=== PATIENT | female | born 1935 | race Caucasian/White ===

== ENCOUNTER → 2017-03-02 | Outpatient (CLI) | payer OTHER ==
--- NOTE | 2017-03-03 07:10 | HKNOTE ---
DATE OF SERVICE: 03/02/2017 MAIN COMPLAINT: Left knee pain. HISTORY OF PRESENT ILLNESS: This is a 81-year-old female complaining of severe left knee pain that has been worsening over the last year. Pain is constant. It is on the inside of the left knee. There are no alleviating factors. She rates it as 9/10. She denies any groin or back pain. The pain is sharp. She denies any history of trauma. She denies any locking, catching or instability. She does not use any assistive devices. She takes ibuprofen without any pain relief. She has no other complaints. PHYSICAL EXAMINATION: Gait: Antalgic gait. No use of assistive devices. Left knee: Neutral alignment. Tender over the medial joint line, nontender over the lateral joint line, 0-110 degrees range of motion. Stable to varus, valgus stress. Negative Aiyana. Negative anterior drawer. Negative posterior drawer. Palpable pulses. IMAGING: X-rays left knee: Three views of the left knee demonstrate medial joint space narrowing with marginal osteophytes. There is bone on bone degenerative changes. IMPRESSION: A 81-year-old female with left knee osteoarthritis who has failed nonoperative management. PLAN: We will request authorization for left total knee arthroplasty. She will return in four weeks for preoperative evaluation. All questions were answered to her satisfaction. Dictated By: Jo Dhaliwal MD /chelsea/carie /Document#: [id number]
== END | disposition home or self-care (01) ==
LOC: HKI 15:34
PROVIDERS: ATTEND Orthopaedic Surgery Adult Reconstructive Orthopaedic Surgery
DX: M25.562 Pain in left knee (principal); M17.12 Unilateral primary osteoarthritis, left knee
CPT/HCPCS: G0463

== ENCOUNTER → 2017-05-03 | Outpatient (CLI) | payer OTHER ==
[~2017-05-03] MED LIST: ALPR0.5T6 PO; RANI150T5 PO
--- NOTE | 2017-05-03 23:10 | HKNOTE ---
DATE OF SERVICE: 05/03/2017 Ms. Martin returned today for her preoperative evaluation. I discussed the risks associated with aziza sin which include, but are not limited to, infection, deep venous thrombosis, pulmonary embolism, d amage to nerves and blood vessels requiring repair and impairing function, heart attack, stroke, nee d for blood transfusion, risks associated with anesthesia, wear of prosthesis, loosening of prosthes is, need for revision surgery and even . Informed consent was obtained. All questions were an swered to her satisfaction. She is scheduled for a left total knee arthroplasty on 05/04/2017 at [facility]. Dictated By: LAKISHA HEALY/TEETEE Conf#: [id number] DID#: [id number]
== END | disposition home or self-care (01) ==
LOC: HKI 11:04
PROVIDERS: ATTEND Orthopaedic Surgery Adult Reconstructive Orthopaedic Surgery
DX: Z01.818 Encounter for other preprocedural examination (principal)
CPT/HCPCS: G0463

== ENCOUNTER 2017-05-04 06:08 | Inpatient (IN) | payer OTHER ==
[2017-05-04] VITALS (23 sets, daily range): BP systolic 110–145; BP diastolic 53–72; PULSE 70–87; RESP 8–18; Ht 160 cm; Wt 61.5 kg
[~2017-05-04] VITALS: Ht 160 cm; Wt 61.5 kg
[2017-05-04] MEDS ORDERED: BACITRACIN 50000 UNITS INJ ONE (06:52)
[2017-05-04] MEDS ORDERED: POLYMYXIN B 500000 UNIT INJ ONE (06:56)
[2017-05-04 06:58] LABS: BASOPHILS % 0.4 % (0.0-2.0); EOSINOPHILS # 0.2 10^3/ul (0.0-0.5); EOSINOPHILS % 3.2 % (0.0-7.0); HEMATOCRIT 39.8 % (37.0-47.0); HEMOGLOBIN 13.6 g/dl (12.0-16.0); LYMPHOCYTES # 1.8 10^3/ul (0.8-2.9); LYMPHOCYTES % 34.2 % (15.0-51.0); MEAN CORPUSCULAR HEMOGLOBIN 32.2 pg (29.0-33.0); MEAN CORPUSCULAR HGB CONC 34.2 g/dl (32.0-37.0); MEAN CORPUSCULAR VOLUME 94.1 fl (82.0-101.0); MONOCYTE # 0.4 10^3/ul (0.3-0.9); MONOCYTES % 8.2 % (0.0-11.0); NEUTROPHIL # 2.9 10^3/ul (1.6-7.5); NEUTROPHILS % 53.8 % (39.0-77.0); PLATELET COUNT 221 10^3/UL (140-415); RED BLOOD COUNT 4.23 10^6/ul (4.20-5.40); RED CELL DISTRIBUTION WIDTH 12.4 % (11.5-14.5); WHITE BLOOD COUNT 5.4 10^3/ul (4.8-10.8)
[2017-05-04] MEDS ORDERED: LANSOPRAZOLE 30 MG CAP PO ONE (07:00)
[2017-05-04] MEDS ORDERED: CELECOXIB 200 MG CAP PO ONE (07:00)
[2017-05-04] MEDS ORDERED: ACETAMINOPHEN 1000MG/100ML IV 100 ML IVPB ONE (07:00)
[2017-05-04] MEDS ORDERED: oxyCODONE (CR) 10 MG TAB [oxyCONTIN] PO ONE (07:00)
[2017-05-04] MEDS ORDERED: DEXAMETHASONE 4 MG/ML 1 ML INJ ONE (07:00)
[2017-05-04] MEDS ORDERED: CEFAZOLIN 2 GM/50 ML (PMX) 50 ML IVPB ONE (07:00)
[2017-05-04] MEDS ORDERED: DEXAMETHASONE 4 MG/ML 1 ML INJ IV ONE (07:00)
[2017-05-04] MEDS ORDERED: SOD CHLORIDE 0.9% IVPB ONE ×2 (07:00→09:00)
[2017-05-04] MEDS ORDERED: TRANEXAMIC ACID IVPB ONE ×2 (07:00→09:00)
[2017-05-04] MEDS ORDERED: ONDANSETRON 4 MG INJ IV ONE (07:00)
[2017-05-04] MEDS ORDERED: LACTATED RINGER'S 1,000 ML IV* SCH (07:00)
[2017-05-04] MEDS ORDERED: RANI150T5 PO (07:16)
[2017-05-04] MEDS ORDERED: ALPR0.5T6 PO (07:16)
--- NOTE | 2017-05-04 07:20 | HPN ---
Date/Time of Note Date/Time of Note DATE: 05/04/17 TIME: 07:20 Interval H&P Admission Note Pt. seen H&P reviewed: No system changes RINA LAST PA-C May 04, 2017 07:20
[2017-05-04] MEDS ORDERED: CEFAZOLIN 1 GM INJ ONE ×2 (07:28→08:00)
[2017-05-04] MEDS ORDERED: ROCURONIUM 50 MG INJ ONE ×2 (07:28→07:38)
[2017-05-04] MEDS ORDERED: GLYCOPYRROLATE 0.4 MG INJ ONE (07:28)
[2017-05-04] MEDS ORDERED: PROPOFOL 20 ML ONE (07:28)
[2017-05-04] MEDS ORDERED: NEOSTIGMINE 3 MG/3 ML SYRINGE ONE (07:28)
[2017-05-04] MEDS ORDERED: FENTAnyl 50 MCG/ML VIAL ONE (07:36)
[2017-05-04] MEDS ORDERED: PROPOFOL 100 ML ONE (07:38)
[2017-05-04] MEDS ORDERED: ONDANSETRON 4 MG INJ ONE (07:38)
[2017-05-04] MEDS ORDERED: ROPIVACAINE 0.5 % 30 ML VIAL ONE (07:38)
[2017-05-04] MEDS ORDERED: morphine SULFATE/PF (10 MG/10 ML) INJ ONE (07:38)
[2017-05-04] MEDS ORDERED: MIDAZOLAM 1 MG/ML 2 ML INJ ONE (07:38)
[2017-05-04] MEDS ORDERED: ETOMIDATE 20 MG INJ ONE (07:38)
[2017-05-04] MEDS ORDERED: POLYMYXIN/BACITRACIN 1L IRRIG ONE (08:23)
[2017-05-04] MEDS ORDERED: DIPHENHYDRAMINE 50 MG INJ IV PRN ×2 (09:00)
[2017-05-04] MEDS ORDERED: hydrALAzine 20 MG INJ IV PRN (09:00)
[2017-05-04] MEDS ORDERED: MEPERIDINE 25 MG INJ IV PRN (09:00)
[2017-05-04] MEDS ORDERED: ALBUTEROL 0.083% (NEB) 2.5 MG/3 ML AMP HHN PRN (09:00)
[2017-05-04] MEDS ORDERED: MIDAZOLAM 1 MG/ML 2 ML INJ IV PRN (09:00)
[2017-05-04] MEDS ORDERED: LABETALOL HCL 20MG INJ IV PRN (09:00)
[2017-05-04] MEDS ORDERED: HYDROmorphONE (0.2 MG/ML) 10ML SYG IV PRN ×3 (09:00)
[2017-05-04] MEDS ORDERED: morphine 2 MG INJ IV PRN (09:00)
[2017-05-04] MEDS ORDERED: morphine 4 MG/ML VIAL IV PRN (09:00)
[2017-05-04] MEDS ORDERED: FENTAnyl 50 MCG/ML VIAL IV PRN ×3 (09:00)
[2017-05-04] MEDS ORDERED: NALBUPHINE HCL (10 MG/1 ML) INJ IV PRN (09:00)
[2017-05-04] MEDS ORDERED: ZOLPIDEM 5 MG TAB PO PRN (09:00)
[2017-05-04] MEDS ORDERED: OXYCODONE/ACETAMINOPHEN (5/325) TAB PO PRN ×2 (09:00)
[2017-05-04] MEDS ORDERED: EPHEDrine SULFATE 50 MG/5 ML SYG IV PRN (09:00)
[2017-05-04] MEDS ORDERED: TRIMETHOBENZAMIDE 100 MG/ML VIAL IM PRN ×2 (09:00)
[2017-05-04] MEDS ORDERED: ONDANSETRON 4 MG INJ IV PRN ×3 (09:00→10:00)
[2017-05-04] MEDS ORDERED: NALOXONE (0.4 MG/ML) INJ IV PRN (09:00)
[2017-05-04] MEDS ORDERED: IPRATROPIUM (NEB) 0.5 MG/2.5 ML AMP HHN PRN (09:00)
[2017-05-04] MEDS ORDERED: ROPIVACAINE 0.2% 60 ML, morphine SULFATE (PF) 4 MG, CLONIDINE 100 MCG, EPINEPHrine 0.3 MG INJ SCH ×7 (09:30)
--- NOTE | 2017-05-04 09:56 | SIPON ---
Date/Time of Note Date/Time of Note DATE: 05/04/17 TIME: 09:54 Operative Report Preoperative Diagnosis Left knee osteoarthritis Postoperative Diagnosis same Operation/Procedure Performed left total knee arthroplasty Surgeon Elda Barry regulatory affairs assistant Erich Rivera Second assist: RINA LAST PA-C Anesthesia: spinal Estimated blood loss: 150 - 200 ml's Transfusion Required none Specimen resected bone Grafts/Implants [employer] [facility] Size 5N femur, Linn II Size 3 tibia, 11mm post stabilized poly, 35mm patella Complications none LAKISHA BARRY MD May 04, 2017 09:56
[2017-05-04] MEDS ORDERED: HYDROCODONE/APAP (5/325) TAB PO PRN (10:00)
[2017-05-04] MEDS ORDERED: oxyCODONE 5 MG TAB PO PRN (10:00)
--- NOTE | 2017-05-04 10:09 | PDOCDIS ---
Discharge Instructions DIAGNOSIS Discharge Diagnosis Status post left total knee arthroplasty. CONDITION Patient Condition: Good HOME CARE INSTRUCTIONS: Diet Instructions: Regular ACTIVITY: Activity Restrictions: Slowly Increase Activity Rest between Activity Avoid heavy lifting No Sexual Activity Do not Drive Do not operate Machinery Do not operate Power Tool Avoid Heavy Housework Keep Limb Elevated (May put 2-3 pillows under the foot and ankle only. May use cold therapy while resting.) Weight Bearing (Weight-bear as tolerated using front wheeled walker.) Bathing Restrictions: Shower (Keep surgical area clean and dry until seen postoperatively.) FOLLOW UP/APPOINTMENTS Follow-up Plan Follow-up at postoperative visit provided to you at your preoperative exam. RINA LAST PA-C May 04, 2017 10:09
--- NOTE | 2017-05-04 10:42 | RADRPT ---
PROCEDURE: XR Knee. CLINICAL INDICATION: Osteoarthritis TECHNIQUE: AP and lateral views of the knee were obtained. The images reviewed on a PACS workstat ion. COMPARISON: None. FINDINGS: There is left total knee replacement. The femoral and tibial components are anatomically seated. N o acute fracture is identified. There are postoperative changes with subcutaneous air IMPRESSION: 1. Status post left total knee replacement. 2. No acute fracture seen. 3. Postoperative changes RPTAT: HH .Dennis Strauss MD, Date Time Electronically viewed and signed by .Dennis Strauss MD, on 05/04/2017 10:42 .W/
[2017-05-04] MEDS: CEFAZOLIN 1 GM/50 ML (PMX) 50 ML IVPB SCH ×2 (10:54→18:16)
[2017-05-04] MEDS: KETOROLAC 30 MG INJ IV SCH ×2 (11:19→18:18)
--- NOTE | 2017-05-04 11:56 | OPR ---
DATE OF OPERATION: 05/04/2017 PREOPERATIVE DIAGNOSIS: Left knee osteoarthritis. POSTOPERATIVE DIAGNOSIS: Left knee osteoarthritis. PROCEDURE PERFORMED: 1. Left total knee arthroplasty, CPT code 25148. 2. Computer assisted surgical navigational procedure for total knee, CPT code 69921. SURGEON: Lakisha Dhaliwal MD. DECK AND HULL ASSEMBLER: 1. Erich Rivera. 2. BRADY Brown. ANESTHESIOLOGIST: Antonio Isaacs MD. ANESTHESIA: Spinal. ESTIMATED BLOOD LOSS: 200 mL. COMPLICATIONS: None. SPECIMENS: Resected bone. TOURNIQUET TIME: 58 minutes at 250 mmHg. DISPOSITION: To PACU in stable condition. IMPLANT USED: Crystal [employer] Nephew alesia 2 size 3 tibial baseplate, legion size 5 narrow femoral component, 35 mm patella, 11 mm posterior stabilized polyethylene. INDICATION FOR PROCEDURE: This is a 81-year-old female with endstage osteoarthritis of the left knee who had failed nonoperative management. Risks, benefits, alternatives of surgical intervention were discussed with the patient and informed consent was obtained. The risks of surgery include but are not limited to infection, deep venous thrombosis, pulmonary embolism, damage to neurovascular structures, wound healing problems, loosening of prosthesis, where of prosthesis, need for revision surgery, stiffness, need for blood transfusion, heart attack, stroke, risks associated with anesthesia and even . DETAILS OF PROCEDURE: The patient was met in the preoperative suite. The correct operative site was confirmed and marked. She was then brought into operating room. After induction of spinal anesthesia, she was placed in the supine position on the operating room table. A tourniquet was applied to the left upper thigh. The left lower extremity was prepped and draped in the usual sterile fashion. Before starting, a timeout was taken to identify the correct operative site and confirm that preoperative antibiotics consisting of 1 gram of IV Ancef along with 1 gram of tranexamic acid were administered. At this point, the left leg was then elevated and exsanguinated and the tourniquet was then insufflated for the above-noted time. A midline incision was made and a median parapatellar arthrotomy was then completed. The lateral patellar retinacular ligaments were released and the patella was retracted laterally. The sleeve of tissue was released from the proximal medial tibia. The cruciate and the menisci were excised along with the suprapatellar fat pad. The intramedullary hole was drilled into the femur and the femoral kenna was attached to the anterior cutting block set at 5 degrees of valgus. The block was then pinned into position and the distal femoral cut was then made, taking 9.5 mm of distal femur. All the osteophytes were removed. The femur was sized to a size 5. The 4-in-1 cutting block was pinned and the anterior posterior condylar cuts followed by the anterior and posterior chamfer cuts were then completed. At this point, the tibia was subluxed anteriorly. With the use of the navigation, Do IT developers Align, the slope was set at 4 degrees with 0 degrees of varus and valgus, 2 mm was resected off the medial tibial plateau and 8 mm off the lateral tibial plateau. The gap specifications checker was used and noted to have equal extension and flexion gaps. The tibia was then subluxed anteriorly and sized to a size 3. The tibial tray was then pinned and the keel was punched. Next, the femoral component was placed and the femoral box cut was then completed. At this point, the patella was sized to 22 mm and 8 mm was resected. The patella was sized to 35 mm. The holes for the patellar button were placed, the trial insert and components were placed using a 9 mm insert. The leg was noted to be in recurvatum and 11 mm insert was placed with the full extension and greater than 120 degrees of flexion. The knee was stable to varus valgus stress with excellent patellar tracking. Trial components were removed. All bony surfaces were pulse lavaged and dried. The appropriate size components were brought into the field and cemented with the removal of excess cement. The knee was held in extension until the cement had cured. At this point, the tourniquet was deflated. The tranexamic acid and antibiotics were redosed. Once the cement had cured the trial polyethylene was removed and the appropriate size 11 mm posterior stabilized polyethylene was placed. Hemostasis was obtained. Arthrotomy was closed using a #1 Vicryl in interrupted [id number] fashion followed by closure of subcutaneous tissue with 2-0 Vicryl and the skin with 3-0 Monocryl in subcuticular fashion. Steri- Strips and sterile dressing was applied followed by a cold pack and Wood wrap. The patient was awakened and taken to postoperative care unit in stable condition. POSTOPERATIVE CARE: She will be weightbearing as tolerated. She will work with physical therapy. She will receive 2 additional doses of IV Ancef along with aspirin 325 mg p.o. b.i.d. for 6 weeks. Upon discharge, she will follow up at the [facility] within 2 weeks postoperatively. Dictated By: LAKISHA HEALY/TEETEE Conf#: [id number] DID#: [id number] MTDD
[2017-05-04] MEDS: traMADol 50 MG TAB PO SCH ×2 (13:08→18:00)
[2017-05-04] MEDS: DOCUSATE SODIUM 100 MG CAP PO SCH (20:25)
[2017-05-04] MEDS ORDERED: RANITIDINE 150 MG TAB PO SCH (21:00)
[2017-05-05 00:42] VITALS: BP 103/55; RESP 20
[2017-05-05] MEDS: KETOROLAC 30 MG INJ IV SCH (02:00)
[2017-05-05] MEDS: CEFAZOLIN 1 GM/50 ML (PMX) 50 ML IVPB SCH (02:24)
--- NOTE | 2017-05-05 05:03 | HP ---
Date/Time of Note Date/Time of Note DATE: 05/05/17 TIME: 04:55 Assessment/Plan VTE Prophylaxis VTE Prophylaxis Intervention: SCD's Lines/Catheters IV Catheter Type (from Nrs): Peripheral IV Urinary Cath still in place: Yes Reason Cath still needed: other (indicate) (post op) Assessment/Plan Chief Complaint/Hosp Course This is a 81 year female being admitted to the [facility] for: #1 left total knee arthroplasty: Patient at the current time is POD #1. She is doing well. Continue PT recommendations as per ortho. Continue pain management as per ortho. Patient will be on aspirin 325 mg p.o. twice daily for approximately 6 weeks for DVT prophylaxis. Patient will be following up with physical therapy as an outpatient postoperatively. Further recommendations as per orthopedic surgery. She received Ancef as per orthopedic recommendations. #2 GERD: Continue ranitidine #3 insomnia: Continue alprazolam #4 DVT GI prophylaxis: Aspirin 325 p.o. twice daily, ranitidine Further treatment strategy will be implemented as per the clinical course Problems: HPI/ROS Admit Date/Time Admit Date/Time May 04, 2017 at 06:08 Hx of Present Illness Chief complaint: Left knee pain This is a 81-year-old female who is status post elective left knee arthroplasty. Patient has been dealing with pain in her left knee for approximately 3 years. She was diagnosed with left knee osteoarthritis. She had an elective total knee arthroplasty performed. She is currently postop day 1. Reports that her pain is well controlled. Denies any chest pain shortness of breath or nausea or vomiting. Denies any fevers. Allergies: NKDA Medications: See LINH TONG Const: As per HPI Eyes : No pain discharge or redness or change in visual acuity ENT: No pain, sore throat, congestion, congestion, dysphagia or discharge Respiratory: No shortness of breath, cough, sputum, wheezing, or pleuritic pain Cardiovascular: No chest pain, palpitation, PND, or edema GI : no change in appetite, abdominal pain, nausea, vomiting, diarrhea, constipation, or change in the color his stool Genitourinary: No dysuria, hematuria, flank pain , discharge or CVA tenderness Musculoskeletal: As per HPI Skin: No rash, bruising or hives Neuro: No headache, dizziness, syncope, seizure, focal weakness Endocrine: No polyuria, polydipsia, temperature intolerance Psych: No hallucination, depression, anxiety or suicidal ideation PMH/Family/Social Past Medical History Arthritis, GERD, insomnia Past Surgical History Cholecystectomy, left total knee arthroplasty Family History Significant Family History: no pertinent family hx Social History Alcohol Use: none Smoking Status: Never smoker Drug Use: none Exam/Review of Systems Vital Signs Vitals Vital Signs Date Time Temp Pulse Resp B/P Pulse Ox O2 Delivery O2 Flow Rate FiO2 05/05/17 00:42 98.4 75 20 103/55 98 05/04/17 16:45 Nasal Cannula 2.0 Intake and Output 05/04/17 05/04/17 05/05/17 15:00 23:00 07:00 Intake Total 3000 ml Output Total 1300 ml Balance 1700 ml Exam Exam General: Patient is pleasant well-developed female lying in bed in no acute distress HEENT: Atraumatic, normocephalic. The pupils are equal, round and reactive. Extraocular motor are intact Neck: Supple with full range of motion. No rigidity or meningismus Chest: Nontender Lungs: Clear to auscultation bilaterally no crackles rales or wheezing Heart: Normal S1-S2, Regular rhythm and rate. No murmur, S3, or S4 Abdomen: Soft , nontender, nondistended , bowel sounds are present. No guarding no rebound tenderness , No masses or organomegaly. No costovertebral temporal angle mass Extremities: Left knee currently in a brace/dressing. Dressing clean dry and intact. Neurologic: Normal mental status, speech normal, cranial nerves II through XII are intact, motor and sensory are intact, no focal weakness Additional Comments PROCEDURE: XR Knee. CLINICAL INDICATION: Osteoarthritis TECHNIQUE: AP and lateral views of the knee were obtained. The images reviewed on a PACS workstation. COMPARISON: None. FINDINGS: There is left total knee replacement. The femoral and tibial components are anatomically seated. No acute fracture is identified. There are postoperative changes with subcutaneous air IMPRESSION: 1. Status post left total knee replacement. 2. No acute fracture seen. 3. Postoperative changes RPTAT: HH .Dennis Strauss MD, Date Time Electronically viewed and signed by .Dennis Strauss MD, MD on 05/04/2017 10:42 .W/ CC: LAKISHA BARRY MD Labs Result Diagram: 05/04/17 0650 Medications Medications Current Medications Morphine Sulfate (morphine) 2 mg Q2H PRN IV PAIN LEVEL 1-5 Last administered on 05/04/17 21:58; Admin Dose 2 MG; Start 05/04/17 at 09:00; Stop 05/05/17 at 08:00 Morphine Sulfate (morphine) 4 mg Q2H PRN IV PAIN LEVEL 6-10; Start 05/04/17 at 09:00; Stop 05/05/17 at 08:00 Nalbuphine HCl (Nubain) 10 mg Q4H PRN IV PRURITUS; Start 05/04/17 at 09:00; Stop 05/05/17 at 08:00 Celecoxib (Celebrex) 200 mg DAILY PO ; Start 05/05/17 at 09:00 Tramadol HCl (Ultram) 50 mg Q6 PO Last administered on 05/04/17 13:08; Admin Dose 50 MG; Start 05/04/17 at 12:00; Stop 05/07/17 at 11:59 Acetaminophen/ Hydrocodone Bitart ([place] (5/325)) 1 tab Q4H PRN PO PAIN LEVEL 1 -3; Start 05/04/17 at 10:00 Oxycodone HCl (Roxicodone) 10 mg Q4H PRN PO PAIN LEVEL 4-7; Start 05/04/17 at 10:00 Docusate Sodium (Colace) 100 mg BID PO Last administered on 05/04/17 20:25; Admin Dose 100 MG; Start 05/04/17 at 21:00 Aspirin (Ecotrin) 325 mg BID PO ; Start 05/05/17 at 09:00 Ondansetron HCl (Zofran Inj) 4 mg Q6H PRN IV NAUSEA AND/OR VOMITING; Start at 07:37 Ranitidine HCl (Zantac) 150 mg BID PO Last administered on 05/04/17 20:25; Admin Dose 150 MG; Start 05/04/17 at 21:00 RONAL WOLF May 05, 2017 05:03
[2017-05-05] MEDS ORDERED: ALPRAZOLAM 0.5 MG TAB PO PRN (05:30)
[2017-05-05 05:45] LABS: BASOPHILS % 0.1 % (0.0-2.0); HEMATOCRIT 32.8 % (37.0-47.0); HEMOGLOBIN 11.1 g/dl (12.0-16.0); LYMPHOCYTES # 1.5 10^3/ul (0.8-2.9); LYMPHOCYTES % 14.7 % (15.0-51.0); MEAN CORPUSCULAR HEMOGLOBIN 32.3 pg (29.0-33.0); MEAN CORPUSCULAR HGB CONC 33.8 g/dl (32.0-37.0); MEAN CORPUSCULAR VOLUME 95.3 fl (82.0-101.0); MEAN PLATELET VOLUME 10.1 fl (7.4-10.4); MONOCYTE # 0.8 10^3/ul (0.3-0.9); MONOCYTES % 7.5 % (0.0-11.0); NEUTROPHIL # 7.9 10^3/ul (1.6-7.5); NEUTROPHILS % 77.4 % (39.0-77.0); PLATELET COUNT 201 10^3/UL (140-415); RED BLOOD COUNT 3.44 10^6/ul (4.20-5.40); RED CELL DISTRIBUTION WIDTH 12.4 % (11.5-14.5); WHITE BLOOD COUNT 10.1 10^3/ul (4.8-10.8)
[2017-05-05] MEDS: traMADol 50 MG TAB PO SCH ×4 (06:00→13:07)
[2017-05-05 06:09] LABS: CALCIUM 8.3 mg/dl (8.4-10.2); CREATININE 0.71 mg/dl (0.44-1.00); POTASSIUM 4.8 mmol/L (3.5-5.1)
[2017-05-05 07:35] VITALS: BP 121/58; RESP 20
[2017-05-05] MEDS ORDERED: ONDANSETRON 4 MG INJ IV PRN (07:37)
[2017-05-05] MEDS: RANITIDINE 150 MG TAB PO SCH ×2 (08:28→20:47)
[2017-05-05] MEDS: CELECOXIB 200 MG CAP PO SCH (08:28)
[2017-05-05] MEDS: ASPIRIN (EC) 325 MG TAB PO SCH ×2 (08:29→20:46)
[2017-05-05] MEDS: DOCUSATE SODIUM 100 MG CAP PO SCH ×2 (08:29→20:47)
[2017-05-05 09:21] LABS: ADD UMIC YES; UR ASCORBIC ACID NEGATIVE (NEGATIVE); UR BILIRUBIN (Dip) NEGATIVE (NEGATIVE); UR BLOOD (Dip) 1+ mg/dL (NEGATIVE); UR CLARITY CLEAR (CLEAR); UR COLOR YELLOW (YELLOW); UR GLUCOSE (Dip) NEGATIVE (NEGATIVE); UR KETONES (Dip) NEGATIVE (NEGATIVE); UR LEUKOCYTE ESTERASE (Dip) NEGATIVE Leu/ul (NEGATIVE); UR MUCUS FEW /HPF (NONE SEEN); UR NITRITE (Dip) NEGATIVE (NEGATIVE); UR RBC 12 /HPF (0-5); UR SPECIFIC GRAVITY (Dip) 1.018 (1.003-1.030); UR TOTAL PROTEIN (Dip) NEGATIVE (NEGATIVE); UR UROBILINOGEN (Dip) NEGATIVE (NEGATIVE)
--- NOTE | 2017-05-05 09:43 | PN ---
Date/Time of Note Date/Time of Note DATE: 05/05/17 TIME: 09:43 Assessment/Plan VTE Prophylaxis VTE Prophylaxis Intervention: other (aspirin 325 twice a dayx 6 weeks) Lines/Catheters IV Catheter Type (from [facility]): Peripheral IV Urinary Cath still in place: No Assessment/Plan Chief Complaint/Hosp Course 81-year-old female who is status post left total knee arthroplasty 1. Left knee osteoarthritis. Status post left total knee arthroplasty 05/04/2017 -Postoperative antibiotic, pain control, weightbearing and anticoagulation per orthopedic colleagues. 2. GERD. -on ranitidine 3. insomnia. -on alprazolam DVT/ GI prophylaxis: Aspirin 325 p.o. twice daily or approximately 6 weeks for DVT prophylaxis/H2 blockers. Patient is seen in collaboration with . Problems: Subjective 24 Hr Interval Summary Free Text/Dictation Patient doing well. Pending physical therapy evaluation. Pain is minimal. Exam/Review of Systems Vital Signs Vitals Vital Signs Date Time Temp Pulse Resp B/P Pulse Ox O2 Delivery O2 Flow Rate FiO2 05/05/17 07:35 97.6 75 20 121/58 96 05/04/17 16:45 Nasal Cannula 2.0 Intake and Output 05/04/17 05/04/17 05/05/17 15:00 23:00 07:00 Intake Total 3000 ml 450 ml Output Total 1300 ml 700 ml Balance 1700 ml -250 ml Exam General: Well developed,adequately built, not in any acute distress . HEENT: Normocephalic, Atraumatic, No laceration or hematoma; Eyes: PEERL, Conjunctiva clear, Anicteric sclera Neck: Supple without any lymphadenopathy, nontender, no JVD, no carotid bruits, trachea midline, no thyromegaly Cardiac: S1, S2 auscultated, regular rhythm and rate, no mumurs or gallop Pulmonary: Normal respiratory effort. Chest clear to auscultation bilaterally, no adventitious breath sounds GI: Abdomen normal to inspection. Soft, non tender, non- distended, no masses, no rebound tenderness or guarding. Bowel sounds active on all four quadrants Genitourinary: Deferred Extremities: Left knee with surgical area covered with Wood wrap. No cyanosis, clubbing, or edema. Pulses [2+] bilaterally. Full ROM on all four extremities. No focal weakness appreciated. Neurologic: Alert to person, place, time, and situation. Affect appropriate, intact sensation. Skin: Clean,dry, and intact. No ecchymosis, no rashes, or lesions Results Result Diagram: 05/05/178 05/05/178 Results 24 hrs Laboratory Tests Test 05/05/17 04:28 05/05/17 06:15 White Blood Count 10.1 # Red Blood Count 3.44 L Hemoglobin 11.1 L Hematocrit 32.8 L Mean Corpuscular Volume 95.3 Mean Corpuscular Hemoglobin 32.3 Mean Corpuscular Hemoglobin Concent 33.8 Red Cell Distribution Width 12.4 Platelet Count 201 Mean Platelet Volume 10.1 Neutrophils % 77.4 H Lymphocytes % 14.7 L Monocytes % 7.5 Eosinophils % 0.0 Basophils % 0.1 Nucleated Red Blood Cells % 0.0 Neutrophils # 7.9 H Lymphocytes # 1.5 Monocytes # 0.8 Eosinophils # 0.0 Basophils # 0.0 Nucleated Red Blood Cells # 0.0 Sodium Level 135 Potassium Level 4.8 Chloride Level 100 Carbon Dioxide Level 27 Anion Gap 13 Blood Urea Nitrogen 13 Creatinine 0.71 Glucose Level 94 Calcium Level 8.3 L Urine Color YELLOW Urine Clarity CLEAR Urine pH 7.0 Urine Specific [place] 1.018 Urine Ketones NEGATIVE Urine Nitrite NEGATIVE Urine Bilirubin NEGATIVE Urine Urobilinogen NEGATIVE Urine Leukocyte Esterase NEGATIVE Urine Microscopic RBC 12 H Urine Microscopic WBC 4 Urine Mucus FEW A Urine Hemoglobin 1+ H Urine Glucose NEGATIVE Urine Total Protein NEGATIVE Medications Medications Current Medications Celecoxib (Celebrex) 200 mg DAILY PO Last administered on 05/05/17 08:28; Admin Dose 200 MG; Start 05/05/17 at 09:00 Tramadol HCl (Ultram) 50 mg Q6 PO Last administered on 05/05/17 08:28; Admin Dose 50 MG; Start 05/04/17 at 12:00; Stop 05/07/17 at 11:59 Acetaminophen/ Hydrocodone Bitart ([place] (5/325)) 1 tab Q4H PRN PO PAIN LEVEL 1 -3; Start 05/04/17 at 10:00 Oxycodone HCl (Roxicodone) 10 mg Q4H PRN PO PAIN LEVEL 4-7; Start 05/04/17 at 10:00 Docusate Sodium (Colace) 100 mg BID PO Last administered on 05/05/17 08:29; Admin Dose 100 MG; Start 05/04/17 at 21:00 Aspirin (Ecotrin) 325 mg BID PO Last administered on 05/05/17 08:29; Admin Dose 325 MG; Start 05/05/17 at 09:00 Ondansetron HCl (Zofran Inj) 4 mg Q6H PRN IV NAUSEA AND/OR VOMITING; Start at 07:37 Alprazolam (Xanax) 0.5 mg Q8H PRN PO ANXIETY; Start 05/05/17 at 05:30 Ranitidine HCl (Zantac) 150 mg Q12 PO Last administered on 05/05/17 08:28; Admin Dose 150 MG; Start 05/05/17 at 09:00 Influenza Virus Vaccine (Fluzone) 0.5 ml ONCE ONCE IM* ; Start 05/06/17 at 09: 00; Stop 05/06/17 at 09:01 JALYN BOYER NP May 05, 2017 09:43
--- NOTE | 2017-05-05 11:03 | PN ---
Date/Time of Note Date/Time of Note DATE: 05/05/17 TIME: 11:02 Assessment/Plan VTE Prophylaxis VTE Prophylaxis Intervention: ambulation, SCD's, other (Aspirin 325 mg) Lines/Catheters IV Catheter Type (from Nrsg): Peripheral IV Dick in Place (from Nrsg): No Assessment/Plan Assessment/Plan -Pain Meds as needed -Dressing is clean and intact. -OOB with PT -ASA/SCDs for DVT Prophylaxis -Continue monitoring with Internal Medicine -Patient Stable. Plan is to discharge home tomorrow Subjective 24 Hr Interval Summary 81-year-old female postop day 1 status post left total knee arthroplasty. Patient was experiencing significant pain after surgery yesterday so she declined physical therapy. Plan is to initiate physical therapy today. Denies any chest pain/tightness, shortness of breath or calf pain. Denies any pain at this time. Pain Control: well controlled Exam/Review of Systems Vital Signs Vitals Vital Signs Date Time Temp Pulse Resp B/P Pulse Ox O2 Delivery O2 Flow Rate FiO2 05/05/17 07:35 97.6 75 20 121/58 96 05/04/17 16:45 Nasal Cannula 2.0 Intake and Output 05/04/17 05/04/17 05/05/17 15:00 23:00 07:00 Intake Total 3000 ml 450 ml Output Total 1300 ml 700 ml Balance 1700 ml -250 ml Exam Free Text/Dictation -No complications with dressing intact. -5/5 Tibialis Anterior, EHL Gastrocnemius/Soleus and Peroneals -Normal Sensation -Palpable DP/PT, Capillary Refill <2 secs -No Distal Edema -Negative Alvarez Sign/No calf pain -Toes Freely Movable Constitutional: alert, oriented, well developed Results Result Diagram: 05/05/17 0428 05/05/17 0428 RINA LAST PA-C May 05, 2017 11:03
[2017-05-05 14:49] VITALS: BP 103/52; RESP 20
[2017-05-05] MEDS ORDERED: DIPHENHYDRAMINE 25 MG CAP PO PRN (16:00)
[2017-05-05 20:00] VITALS: BP_SYST 109; BP_SYST 115; BP_DIAS 56; BP_DIAS 60; RESP 18; RESP 19
[2017-05-06 02:00] VITALS: BP 140/65; RESP 18
[2017-05-06 05:15] LABS: BASOPHILS % 0.3 % (0.0-2.0); EOSINOPHILS # 0.1 10^3/ul (0.0-0.5); EOSINOPHILS % 1.5 % (0.0-7.0); HEMOGLOBIN 11.2 g/dl (12.0-16.0); LYMPHOCYTES # 1.4 10^3/ul (0.8-2.9); LYMPHOCYTES % 20.1 % (15.0-51.0); MEAN CORPUSCULAR HEMOGLOBIN 32.5 pg (29.0-33.0); MEAN CORPUSCULAR VOLUME 92.8 fl (82.0-101.0); MEAN PLATELET VOLUME 9.8 fl (7.4-10.4); MONOCYTE # 0.7 10^3/ul (0.3-0.9); MONOCYTES % 9.6 % (0.0-11.0); NEUTROPHIL # 4.7 10^3/ul (1.6-7.5); NEUTROPHILS % 68.4 % (39.0-77.0); PLATELET COUNT 177 10^3/UL (140-415); RED BLOOD COUNT 3.45 10^6/ul (4.20-5.40); RED CELL DISTRIBUTION WIDTH 12.5 % (11.5-14.5); WHITE BLOOD COUNT 6.9 10^3/ul (4.8-10.8)
[2017-05-06 05:40] LABS: CALCIUM 8.6 mg/dl (8.4-10.2); CREATININE 0.71 mg/dl (0.44-1.00); POTASSIUM 4.3 mmol/L (3.5-5.1)
[2017-05-06 07:18] VITALS: BP 126/59; PULSE 84; RESP 16
--- NOTE | 2017-05-06 08:03 | PN ---
Date/Time of Note Date/Time of Note DATE: 05/06/17 TIME: 08:01 Assessment/Plan VTE Prophylaxis VTE Prophylaxis Intervention: ambulation, SCD's, other (Aspirin 325 mg) Lines/Catheters IV Catheter Type (from Nrsg): Peripheral IV Dick in Place (from Nrsg): No Assessment/Plan Assessment/Plan -Pain Meds as needed -ASA for DVT Prophylaxis x 6 weeks outpatient discussed. -Continue monitoring as outpatient on discharge -Follow-up at scheduled postop outpatient appointment or sooner if there is any issue. -Patient Stable -Discharge to Home with home health Subjective 24 Hr Interval Summary 81-year-old female postop day 2 status post left total knee arthroplasty. Has initiated physical therapy and has been up and out of bed. Denies any acute overnight events. Denies any pain. Currently resting in bed comfortably. Plan is to discharge home today. Constitutional: no complaints Pain Control: well controlled Exam/Review of Systems Vital Signs Vitals Vital Signs Date Time Temp Pulse Resp B/P Pulse Ox O2 Delivery O2 Flow Rate FiO2 05/06/17 07:18 98.8 84 16 126/59 94 05/04/17 16:45 Nasal Cannula 2.0 Intake and Output 05/05/17 05/05/17 05/06/17 15:00 23:00 07:00 Intake Total 1080 ml 500 ml Output Total 800 ml 820 ml Balance 280 ml -320 ml Exam Free Text/Dictation -No complications with dressing intact. After removal of dressing, wound is clean dry and intact. -5/5 Tibialis Anterior, EHL Gastrocnemius/Soleus and Peroneals -Normal Sensation -Palpable DP/PT, Capillary Refill <2 secs -No Distal Edema -Negative Alvarez Sign/No calf pain -Toes Freely Movable Constitutional: alert, oriented, well developed Results Result Diagram: 05/06/17 0433 05/06/17 0433 RINA LAST PA-C May 06, 2017 08:03
[2017-05-06] MEDS ORDERED: INFLUENZA VIRUS VACCINE 0.5 ML (DISPENSING) IM* ONE (09:00)
--- NOTE | 2017-05-06 09:10 | PN ---
Date/Time of Note Date/Time of Note DATE: 05/06/17 TIME: 09:09 Assessment/Plan VTE Prophylaxis VTE Prophylaxis Intervention: ambulation, other (Aspirin 325 mg twice 6 weeks. ) Lines/Catheters IV Catheter Type (from [facility]): Peripheral IV Urinary Cath still in place: No Assessment/Plan Chief Complaint/Hosp Course 81-year-old female who is status post left total knee arthroplasty 1. Left knee osteoarthritis. Status post left total knee arthroplasty 05/04/2017 -Postoperative antibiotic, pain control, weightbearing and anticoagulation per orthopedic colleagues. 2. GERD. -on ranitidine 3. insomnia. -on alprazolam Agree with discharge planning to home with home health per orthopedic recommendation. DVT/ GI prophylaxis: Aspirin 325 p.o. twice daily or approximately 6 weeks for DVT prophylaxis/H2 blockers. Patient is seen in collaboration with . Problems: Subjective 24 Hr Interval Summary Free Text/Dictation Patient is doing well. For discharge today. Exam/Review of Systems Vital Signs Vitals Vital Signs Date Time Temp Pulse Resp B/P Pulse Ox O2 Delivery O2 Flow Rate FiO2 05/06/17 07:18 98.8 84 16 126/59 94 05/04/17 16:45 Nasal Cannula 2.0 Intake and Output 05/05/17 05/05/17 05/06/17 15:00 23:00 07:00 Intake Total 1080 ml 500 ml Output Total 800 ml 820 ml Balance 280 ml -320 ml Exam General: Well developed,adequately built, not in any acute distress . HEENT: Normocephalic, Atraumatic, No laceration or hematoma; Eyes: PEERL, Conjunctiva clear, Anicteric sclera Neck: Supple without any lymphadenopathy, nontender, no JVD, no carotid bruits, trachea midline, no thyromegaly Cardiac: S1, S2 auscultated, regular rhythm and rate, no mumurs or gallop Pulmonary: Normal respiratory effort. Chest clear to auscultation bilaterally, no adventitious breath sounds GI: Abdomen normal to inspection. Soft, non tender, non- distended, no masses, no rebound tenderness or guarding. Bowel sounds active on all four quadrants Genitourinary: Deferred Extremities: Left knee with surgical area covered with Wood wrap. No cyanosis, clubbing, or edema. Pulses [2+] bilaterally. Full ROM on all four extremities. No focal weakness appreciated. Neurologic: Alert to person, place, time, and situation. Affect appropriate, intact sensation. Skin: Clean,dry, and intact. No ecchymosis, no rashes, or lesions Results Result Diagram: 05/06/1743205/06/17432 Results 24 hrs Laboratory Tests Test 05/06/17 04:33 White Blood Count 6.9 # Red Blood Count 3.45 L Hemoglobin 11.2 L Hematocrit 32.0 L Mean Corpuscular Volume 92.8 Mean Corpuscular Hemoglobin 32.5 Mean Corpuscular Hemoglobin Concent 35.0 Red Cell Distribution Width 12.5 Platelet Count 177 Mean Platelet Volume 9.8 Neutrophils % 68.4 Lymphocytes % 20.1 Monocytes % 9.6 Eosinophils % 1.5 Basophils % 0.3 Nucleated Red Blood Cells % 0.0 Neutrophils # 4.7 Lymphocytes # 1.4 Monocytes # 0.7 Eosinophils # 0.1 Basophils # 0.0 Nucleated Red Blood Cells # 0.0 Sodium Level 140 Potassium Level 4.3 Chloride Level 107 Carbon Dioxide Level 29 Anion Gap 8 Blood Urea Nitrogen 12 Creatinine 0.71 Glucose Level 99 Calcium Level 8.6 Medications Medications Current Medications Celecoxib (Celebrex) 200 mg DAILY PO Last administered on 05/05/17 08:28; Admin Dose 200 MG; Start 05/05/17 at 09:00 Acetaminophen/ Hydrocodone Bitart ([place] (5/325)) 1 tab Q4H PRN PO PAIN LEVEL 1 -3 Last administered on 05/05/17 21:01; Admin Dose 1 TAB; Start 05/04/17 at 10:00 Oxycodone HCl (Roxicodone) 10 mg Q4H PRN PO PAIN LEVEL 4-7; Start 05/04/17 at 10:00 Docusate Sodium (Colace) 100 mg BID PO Last administered on 05/05/17 20:47; Admin Dose 100 MG; Start 05/04/17 at 21:00 Aspirin (Ecotrin) 325 mg BID PO Last administered on 05/05/17 20:46; Admin Dose 325 MG; Start 05/05/17 at 09:00 Ondansetron HCl (Zofran Inj) 4 mg Q6H PRN IV NAUSEA AND/OR VOMITING; Start at 07:37 Alprazolam (Xanax) 0.5 mg Q8H PRN PO ANXIETY Last administered on 05/05/17 20 :46; Admin Dose 0.5 MG; Start 05/05/17 at 05:30 Ranitidine HCl (Zantac) 150 mg Q12 PO Last administered on 05/05/17 20:47; Admin Dose 150 MG; Start 05/05/17 at 09:00 Diphenhydramine HCl (Benadryl) 25 mg Q6H PRN PO ITCHING; Start 05/05/17 at 16: 00 JALYN BOYER NP May 06, 2017 09:10
[2017-05-06] MEDS: RANITIDINE 150 MG TAB PO SCH (09:11)
[2017-05-06] MEDS: CELECOXIB 200 MG CAP PO SCH (09:11)
[2017-05-06] MEDS: ASPIRIN (EC) 325 MG TAB PO SCH (09:11)
[2017-05-06] MEDS: DOCUSATE SODIUM 100 MG CAP PO SCH (09:11)
[2017-05-06 12:41] VITALS: BP 141/70; PULSE 68; RESP 20
[2017-05-06 15:34] VITALS: BP 134/62; RESP 19
--- NOTE | 2017-05-07 07:30 | DS ---
Date/Time of Note Date/Time of Note DATE: 05/07/17 TIME: 07:29 Discharge Summary Admission/Discharge Info Admit Date/Time May 04, 2017 at 06:08 Discharge Date/Time May 06, 2017 at 19:05 Discharge Diagnosis Status post left total knee arthroplasty. Patient Condition: Good Hospital Course On the day of admission, the patient underwent left total knee arthroplasty Intraoperative complications: None Postoperative complications: None The patient was given prophylactic antibiotics and anticoagulants. On the day of surgery and first postoperative day patient was started on gait training and was taught usual restrictions following knee replacement On postoperative day 1 dressing was clean dry and intact. No complications were observed. On the day of discharge, the wound was clean and healing well; there was no sign of infection. Wound care instructions were discussed with the patient. Discharge Temperature: 98.2 Discharge White Blood Cell Count: 6.9 Discharge Hemoglobin: 11.2 The patient was discharged home with home health. Arrangements were made for visiting nurses and home health/physical therapy. The patient will be seen in office at scheduled postoperative evaluation date given on their preoperative exam. Should patient complain of any problems prior to scheduled postoperative evaluation date, they may call into outpatient clinic to determine if they need to be scheduled at sooner appointment to be seen immediately if needed. Discharge medications: As per medication reconciliation form Diet: Same as preadmission diet. This is Laron Stack PA-C dictating discharge summary for Dr. Maylin Gusman. Home Meds Reported Medications Ranitidine Hcl* (Ranitidine Hcl*) 150 Mg Tablet, 150 MG PO Q12, #60 TAB 05/04/17 Alprazolam* (Alprazolam*) 0.5 Mg Tablet, 0.5 MG PO Q8H Y for ANXIETY, TAB 05/04/17 Follow-up Plan Follow-up at postoperative visit provided to you at your preoperative exam. Primary Care Provider MD BERHANE Hernandez KERBY PA-C May 07, 2017 07:30
[2017-05-07 07:41] VITALS: BP 123/69; RESP 19
== END 2017-05-06 19:05 | disposition home health service (06) | DRG 470 ==
LOC: REC 06:08 → MS1 13:03
PROVIDERS: ADMIT Family Medicine; ATTEND Family Medicine
PROC: 0SRD0J9 Replacement of Left Knee Joint with Synthetic Substitute, Cemented, Open Approach (ICD-10-PCS; 2017-05-04)
PROC: 0SRD069 Replacement of Left Knee Joint with Oxidized Zirconium on Polyethylene Synthetic Substitute, Cemented, Open Approach (ICD-10-PCS; principal; 2017-05-04 09:30)
DX: M17.12 Unilateral primary osteoarthritis, left knee (principal); K21.9 Gastro-esophageal reflux disease without esophagitis; G47.00 Insomnia, unspecified
CPT/HCPCS: 73560; 80048; 81001; 85025; 86850; 86900; 86901; 86920; 87086; 88304; 88311; 90686; 97110; 97116; 97163; 97530; J0131; J0171; J0690; J0697; J0735; J1100; J1885; J2250; J2270; J2274; J2405; J2710; J2795; J3010

== ENCOUNTER → 2017-05-18 | Outpatient (CLI) | payer OTHER ==
--- NOTE | 2017-05-18 15:59 | PN ---
Date/Time of Note Date/Time of Note DATE: 05/18/17 TIME: 15:55 Outpatient Progress Note Chief Complaint 2 weeks status post left total knee replacement HPI 81-year-old female presents today for 2 week postoperative appointment status post left total knee arthroplasty on 05/04/2017. Patient continues with mild to moderate pain complaints, typically with activity. She denies any falls or acute injury since being discharged from the hospital. Denies any chest pain/ tightness, shortness of breath or calf pain. Patient continues to improve as she is no longer using assisted ambulatory device such as a cane or walker. Presents today for postoperative appointment. Patient's son is present today who is translating today's visit. Review of Systems Const: No Fever, no chills, no Fatigue, normal appetite, no diaphoresis. Resp: No SOB, no wheezing, no chest pain. CV: No chest pain, no palpitaions, no JORDAN. Physical Exam Height is 5 foot 4 inches, weight is 140 pounds General Appearance: well-developed, well-nourished, in no acute distress. Left knee: Surgical wound is clean dry and intact. Good scar formation. No tenderness to palpation on exam today. Patient is able to achieve full extension. Flexing up to 95. Mild discomfort when patient reaches maximal point of flexion at 95. 4+/5 strength on resistance with flexion and extension. Normal sensory examination to light touch. Negative Homans sign. Slight limp with ambulation. Mild antalgic gait. Imaging: X-ray of the Left knee performed on 05/18/2017 showing all components appearing well aligned, attached and integrated to the bone. No signs of any lucency between metal and bone. Allergies Coded Allergies: tramadol (Verified Allergy, Intermediate, 05/05/17) ITCHING Assessment/Plan * Initiate outpatient physical therapy with focus on range of motion, strengthening and gait training. * Pain medication as tolerated. Discontinue tramadol due to allergy. * Prescription for [place] 5/325 mg 1 tab p.o. every 6 hours as needed pain #50 tablets provided today as a refill. * Continue aspirin for DVT prophylaxis for 4 weeks until she reaches 6 weeks status post surgery. * At home therapy also encouraged in regards to range of motion and strengthening. * Follow-up 6 weeks status post surgery for repeat evaluation. Dr. Dhaliwal was present for examination today. Medications Home Meds Reported Medications Ranitidine Hcl* (Ranitidine Hcl*) 150 Mg Tablet, 150 MG PO Q12, #60 TAB 05/04/17 Alprazolam* (Alprazolam*) 0.5 Mg Tablet, 0.5 MG PO Q8H Y for ANXIETY, TAB 05/04/17 RINA LAST PA-C May 18, 2017 15:59
--- NOTE | 2017-05-19 13:04 | RADRPT ---
PROCEDURE: Left knee series CLINICAL INDICATION: Pain TECHNIQUE: AP weightbearing lateral and sunrise views were obtained of the left knee. COMPARISON: Left knee series 05/04/2017. FINDINGS: Again noted is a total left knee prosthesis in place without evidence of dislocation or loosening. N o acute fractures. The bony mineralization is normal without focal bony blastic or lytic lesions. Th ere is a moderate left knee joint effusion. Soft tissues are otherwise unremarkable. IMPRESSION: 1. Total left knee prosthesis in place without dislocation or loosening. 2. Moderate left knee joint effusion. RPTAT:AAJJ Physician Earl Date Time Electronically viewed and signed by Raquel Evans Physician on 05/19/2017 13:04 BM/
== END | disposition home or self-care (01) ==
LOC: HKI 15:40
PROVIDERS: ATTEND Orthopaedic Surgery Adult Reconstructive Orthopaedic Surgery
DX: M25.562 Pain in left knee (principal); Z09 Encounter for follow-up examination after completed treatment for conditions other than malignant neoplasm; Z96.652 Presence of left artificial knee joint

== ENCOUNTER → 2017-05-26 | Outpatient (CLI) | payer OTHER ==
--- NOTE | 2017-05-26 14:29 | PN ---
Date/Time of Note Date/Time of Note DATE: 05/26/17 TIME: 14:23 Outpatient Progress Note Chief Complaint Suspected allergy to postoperative medications. HPI 81-year-old female status post left total knee arthroplasty performed on 2016. Was seen last week (05/18/2017) and she was doing well in regards to rehabilitation and returning to functionality status post knee replacement. She presents today with complaints of pruritus about 2 hours after ingesting host operative medication aspirin 325 mg as well as [place] 5/325 mg. She is unsure which specific medication could be causing allergy. Patient developed allergy to tramadol while she was an inpatient in the hospital. Tramadol was discontinued with symptoms of pruritus that dissipated. Now she is having itchiness systemically after taking [place] versus aspirin. Denies any difficulty breathing or shortness of breath. Denies any chest pain/tightness. Continues with rehabilitation to the left knee and states that this is going well. Presents today for evaluation. Presents with daughter today who is translating today's visit. Review of Systems Const: No Fever, no chills, no Fatigue, normal appetite, no diaphoresis. Resp: No SOB, no wheezing, no chest pain. CV: No chest pain, no palpitaions, no JORDAN. Physical Exam Blood pressure is 133/63, temperature is 98.4, pulse 78, respiratory rate is 12 , height is 5 foot 4 inches, weight is 140 pounds. General Appearance: well-developed, well-nourished, in no acute distress. Left knee: Mild swelling to the left knee. No tenderness to palpation. Patient has reached near full extension with about 3-5 lag from full extension. She is flexing up to 110 on office visit today. Mild discomfort when patient reaches maximum point of flexion. 5/5 strength on resistance. Normal sensory examination to light touch. Gait is slightly abnormal as she has slight limp but walking independent without assisted ambulatory device. Negative Homans sign. Allergies Coded Allergies: tramadol (Verified Allergy, Intermediate, 05/05/17) ITCHING Assessment/Plan Problems: (1) Status post left knee replacement (2) Allergy to pain medication * Dr. Dhaliwal was contacted to ensure appropriate alternative for patient for suspected medication allergy to [place] 5/325 mg. It was agreed upon that patient will transition to Tylenol. Prescription for Tylenol 500 mg 1 tab p.o. Every 6 hours as needed pain #120 provided today. Patient may take as needed secondary to pain complaints. Patient was made aware that Tylenol may not be as effective as [place] in regards to pain control but it is potentially harmful to continue giving patient schedule II narcotic medication for pain secondary to possible allergy as this could create difficulty breathing, continued pruritus, rash omit a myriad of other symptoms of allergy and she states understanding. Patient would like to continue with Tylenol. Patient was made aware however, should she have any difficulties or lack of pain control to notify the office and alternative will be discussed/pursued. * Continue with physical therapy. Follow-up at next scheduled appointment in June 2016. Medications Home Meds Reported Medications Ranitidine Hcl* (Ranitidine Hcl*) 150 Mg Tablet, 150 MG PO Q12, #60 TAB 05/04/17 Alprazolam* (Alprazolam*) 0.5 Mg Tablet, 0.5 MG PO Q8H Y for ANXIETY, TAB 05/04/17 RINA LAST PA-C May 26, 2017 14:29
== END | disposition home or self-care (01) ==
LOC: HKI 14:04
PROVIDERS: ATTEND Orthopaedic Surgery Adult Reconstructive Orthopaedic Surgery
DX: Z47.1 Aftercare following joint replacement surgery (principal); Z96.652 Presence of left artificial knee joint

== ENCOUNTER → 2017-06-17 | Outpatient (CLI) | END | disposition home or self-care (01) ==

== ENCOUNTER → 2018-04-25 | Outpatient (CLI) | END | disposition home or self-care (01) ==